=== PATIENT | male | born 1995 | race Caucasian/White ===

== ENCOUNTER 2017-03-31 19:55 | Emergency (ER) | payer BC ==
[~2017-03-31] VITALS: Ht 175.3 cm; Wt 74.8 kg
[2017-03-31] MEDS ORDERED: KEFLEX500 MG PO (21:24)
[2017-03-31 21:42] VITALS: BP 151/65
== END 2017-03-31 21:43 | disposition home or self-care (01) ==
LOC: EME 19:55
DX: S01.81XA Laceration without foreign body of other part of head, initial encounter (principal); W22.8XXA Striking against or struck by other objects, initial encounter; Y93.89 Activity, other specified; F17.210 Nicotine dependence, cigarettes, uncomplicated
CPT/HCPCS: 99281; 99283